=== PATIENT | male | born 1995 | race Caucasian/White ===

== ENCOUNTER 2024-10-11 19:47 | Emergency (ER) | payer SELFPAY ==
[2024-10-11 20:03] VITALS: BP 142/84; PULSE 57; RESP 15; TEMP 37; O2SAT 98; BMI 24.5
== END 2024-10-12 00:27 | disposition left against medical advice (07) ==
PROVIDERS: Emergency Provider Student in an Organized Health Care Education/Training Program
DX: K08.89 Other specified disorders of teeth and supporting structures (principal)
CPT/HCPCS: 99281